=== PATIENT | female | born 2000 | race Caucasian/White ===

== ENCOUNTER 2022-01-04 05:57 | Inpatient (IN) ==
--- NOTE | 2021-12-16 13:57 | PAT Medication Instructions ---
Medication Instructions Date of Service December 16, 2021 Home Medications desogestrel 0.15 mg-ethinyl estradiol 0.03 mg tablet (Enskyce) 1 tab PO DAILY escitalopram oxalate 20 mg tablet 20 mg PO QAM levocetirizine 5 mg tablet 5 mg PO PM ASK your surgeon for instructions desogestrel 0.15 mg-ethinyl estradiol 0.03 mg tablet (Enskyce) 1 tab PO DAILY Take morning of surgery With a small sip of water, OTHERWISE NOTHING TO EAT OR DRINK AFTER MIDNIGHT: escitalopram oxalate 20 mg tablet 20 mg PO QAM Take evening before surgery levocetirizine 5 mg tablet 5 mg PO PM Other Notes If you have any questions please call us at [phone] or [phone] or [phone] or [phone]
--- NOTE | 2021-12-20 14:07 | Anesthesiology Consultation ---
Date of Service December 20, 2021 Assessment & Plan (1) Encounter for pre-operative examination: - COVID screening: Per assessment on 12/20: No known COVID-19 positive contacts or current COVID-19 related symptoms. Travel screen negative. Patient vaccinated. Surgeon arranging preop COVID testing. Awaiting results. - Check test AM DOS Chart Review Chart Review: Acceptable Risk for Surgery and Patient seen in Pre Admission Testing Teaching & Discussion Pre-Anesthesia Teaching/Discussion Notes: Instructed NPO after midnight before surgery,except medications with 15 cc of water. Medication instructions provided according to the PAT guidelines. History Surgery Operation Date: 01/04/22 07:15 Proposed Procedures p Maxillary Lefort I Osteotomy and Mandibular Sagittal Split Osteotomy - Zay Quach MD, DDS Height/Weight Height: 5 ft 6 in Weight: 80 kg Allergies Allergy/AdvReac Type Severity Reaction Status Date / Time No Known Allergies Allergy Verified 12/16/21 10:00 Medications Home Medications Medication Instructions Recorded Confirmed Last Taken desogestrel 0.15 mg-ethinyl 1 tab PO DAILY 12/16/21 12/16/21 Unknown estradiol 0.03 mg tablet (Enskyce) escitalopram oxalate 20 mg tablet 20 mg PO QAM 12/16/21 12/16/21 Unknown levocetirizine 5 mg tablet 5 mg PO PM 12/16/21 12/16/21 Unknown Past Medical History Medical History Anxiety Asthma excercise induced Hx of renal calculi Exercise / Class Metabolic Activity II 4-5 Yardwork/Stairs/Walk up hill Past Surgical History Surgical History Hx of lithotripsy Hx of wisdom tooth extraction Past Anesthesia History No Hx of Anesthesia Complications and No Family Hx of Anesthesia Complications History of PONV No Hx of PONV and No Hx of Motion Sickness Social History Smoking Status: Current every day smoker tobacco type: e-cigarettes Smoking cigarettes per day: vape- ocas Do You Dip or Chew Tobacco: No Hx Alcohol Use: Yes alcohol intake frequency: a few times a month Hx Substance Use: Yes substance use type: marijuana (help with anxiety - ocas) Review of Systems Patient denies chest pain, shortness of breath, dyspnea on exertion, fever, chills, cough, wheezing, palpitations. Physical Exam Vital Signs VITALS BP 120/80 P 88 TEMP 99.4 SP02 98% RA RESP 16 PHYSICAL Full cervical extension range of motion. Full TMJ range of motion. TMD 4 finger breaths Mallampati Score 1 Dentition: intact, upper/lower braces Lungs: clear throughout to auscultation Cardiac: regular rate and rhythm, no murmurs noted Spine: normal Extremities: no edema Lab Results Anesthesia Preop Results Results Anesthesia Widget: WBC 9.87 K/uL (4.8-10.8) 12/20/21 Hgb 13.2 g/dL (12.0-16.0) 12/20/21 Hct 38.7 % (37-47) 12/20/21 Plt 336 K/uL (130-400) 12/20/21 Blood Type B Positive 12/20/21 Antibody Screen NEGATIVE 12/20/21
[2022-01-04] MEDS ORDERED: ceFAZolin 2000MG 2,000 MG/15 ML SYR IV SCH (06:00)
[2022-01-04] MEDS ORDERED: LACTATED RINGER'S 1,000 ML IV SCH (06:00)
[2022-01-04] MEDS ORDERED: DEXAMETHASONE SOD INJ 4 MG/ML VIAL IV SCH (06:00)
--- NOTE | 2022-01-04 06:26 | History & Physical Bridge Note ---
Date of Service January 04, 2022 History & Physical Bridge Note I have examined the patient, reviewed the History & Physical and in the interval since the performance of the History & Physical I have noted the following changes of clinical significance: no changes noted.
[2022-01-04] MEDS ORDERED: ROCURONIUM BROMIDE 10 MG/ML 5 ML VIAL IV ONE ×2 (06:52→08:07)
[2022-01-04] MEDS ORDERED: DEXAMETHASONE SOD INJ 4 MG/ML VIAL ONE (06:52)
[2022-01-04] MEDS ORDERED: LIDOCAINE 2% 2 ML VIAL/AMP(20MG/ML) INFIL ONE (06:52)
[2022-01-04] MEDS ORDERED: ONDANSETRON INJ 2 MG/ML 2 ML VIAL ONE ×2 (06:52→07:54)
[2022-01-04] MEDS ORDERED: MIDAZOLAM HCL 1 MG/ML 2ML VIAL ONE (06:52)
[2022-01-04] MEDS ORDERED: PROPOFOL IV EMULSION 10 MG/ML 20 ML VIAL IV ONE ×2 (06:52→09:14)
[2022-01-04] MEDS ORDERED: fentaNYL citrate 100 MCG/2 ML VIAL ONE (06:52)
[2022-01-04] MEDS ORDERED: ATROPINE SULFATE 0.1 MG/ML 10ML SYR IV PRN ×2 (07:03→12:28)
[2022-01-04] MEDS ORDERED: ePHEDrine sulfate 50 MG/ML AMP IV PRN ×2 (07:03→12:28)
[2022-01-04] MEDS ORDERED: ONDANSETRON INJ 2 MG/ML 2 ML VIAL IV PRN ×2 (07:03→10:54)
[2022-01-04] MEDS ORDERED: OXYMETAZOLINE 0.05% 30 ML BTL ONE (07:05)
[2022-01-04] MEDS ORDERED: SCOPOLAMINE 1 MG TDSY TD ONE (07:12)
[2022-01-04] MEDS ORDERED: BUPIVACAINE/EPINEPHRINE 0.5% 1:200,000 1.8 ML CARP ONE (07:19)
[2022-01-04] MEDS ORDERED: TRIAMCINOLONE ACET 0.1% OINT 15 GM TUBE ONE (07:19)
[2022-01-04] MEDS ORDERED: CHLORHEXIDINE GLUCONATE 0.12% 480 ML ONE (07:20)
[2022-01-04] MEDS ORDERED: HYDROmorphone INJ 2 MG/ML SYR/VIAL ONE (07:55)
[2022-01-04] MEDS ORDERED: ESMOLOL HCL INJ 10 MG/ML 10ML VIAL IV ONE (09:09)
[2022-01-04] MEDS ORDERED: NEOSTIGMINE METHYLSULFATE 1 MG/ML 10ML VIAL ONE (10:27)
[2022-01-04] MEDS ORDERED: GLYCOPYRROLATE 0.2 MG/ML VIAL ONE (10:27)
--- NOTE | 2022-01-04 10:37 | Post Operative Brief Note ---
Immediate Post Op Note v1 Date of Surgery January 04, 2022 Pre & Post Diagnosis Operation Date: 01/04/22 07:15 Pre-Op Diagnosis: Maxillary Hypoplasia, Mandibular Prognathism Post-Op Diagnosis: Maxillary Hypoplasia, Mandibular Prognathism I identified the patient and participated in the time-out.: Yes Procedure Operation Date: 01/04/22 07:15 Actual Procedures Maxillary Lefort I Osteotomy and Mandibular Sagittal Split Osteotomy(Not Applicable) - Zay Quach MD, DDS Surgeon Zay Quach MD, DDS Spreader Operator [facility] Estimated Blood Loss 3 Findings Consistent with Post-Op Diagnosis Intact nerves bilaterally. Stable fixation in the planned occlusion Fluids 1400 Anesthesia Type General Complications None Disposition Accompanied Patient To Recovery: Yes
[2022-01-04] MEDS ORDERED: MoRPHine SULFATE 2 MG/ML CARP IV PRN (10:54)
[2022-01-04] MEDS ORDERED: ACETAMINOPHEN/HYDROcodone ELIX 15 ML/CUP PO PRN ×2 (10:54)
[2022-01-04] MEDS ORDERED: SODIUM CHLORIDE 0.65% NA SOLN 45 ML (OCEAN) PRN (10:54)
[2022-01-04] MEDS: fentaNYL citrate 100 MCG/2 ML VIAL IV PRN ×4 (11:08→11:30)
--- NOTE | 2022-01-04 11:39 | Operative Report (OR) ---
DATE OF SURGERY: 01/04/2022. 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 PROCEDURE: LeFort I maxillary osteotomy with rigid internal fixation and bilateral sagittal split ra mus osteotomies of the mandible with rigid internal fixation. SURGEON: Zay Quach DDS. COVERING MACHINE OPERATOR: JAMEEL Salcedo. ANESTHESIA: General. ESTIMATED BLOOD LOSS: 300 mL. DRAINS: None. SPECIMENS: None. COMPLICATIONS: None. 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 We have consulted with her. She has had required preoperative orthodontic treatment and then she has had a full skele oscar and dental 3 dimensional workup and treatment planning for this surgery. She requires a 5 mm LeFo rt advancement and a 5 mm mandibular setback with correction of a significant mandibular asymmetry wi th the details of the surgery planned custom titanium hardware has been fabricated to assist with the fixation of her maxilla. She has had a routine preadmission testing. She is a good candidate for this surgery medically and s he has had an informed consent. DESCRIPTION OF PROCEDURE: The patient was taken to the operating room and placed supine on the opera ting room table. Routine anesthesia monitors were applied. General anesthesia was induced and nasal endotracheal intubation was performed. The eyes were lubed and taped. The endotracheal tube was se cured and a head wrap and a sterile prep and drape was performed. We then took a timeout. I began b y placing IMF screws between the premolars in all 4 quadrants and doing a minor occlusal adjustment o f several teeth as planned in her workup. We approached the mandible first after giving 0.5% Marcaine as inferior alveolar nerve blocks bilaterally and infraorbital nerve blocks in the maxilla. I first created the right posterior mandibular buccal sulcus incision, carried this down to the mandible and reflected the posterior ramus of the mandible to allow access for the sagittal osteotomy. The inferior alveolar nerve was identified as it entered the mandibular foramen. It was protected wi th a lighted retractor. I completed the sagittal osteotomy and packed this side. I then turned my at tention to the left side and made the same soft tissue incision with a wide reflection of the ramus o f the mandible. Identification and protection of the inferior alveolar nerve and completion of the s agittal osteotomy with the reciprocating saw. We then packed these before the osteotomies were compl eted and turned our attention to the maxilla. The typical upper buccal sulcus incision was then crea selena with a needle tip electrocautery in the anterior maxilla and the floor of the nose was exposed. I used the surgical guides to jarrell out the planned osteotomies and screw hole location and then finis hed the osteotomies with the reciprocating saw. I released the pterygoid plates with a curved osteoto me and I the lateral nasal mahmood with a guarded osteotome and the nasal septum fr om the maxillary crest with a straight osteotome. With finger pressure and the Hua spreaders, the maxilla was easily down fractured and mobilized. B feli interferences were trimmed with the rongeurs and there was very little bleeding. I advanced her maxilla into the intermediate splint and found to be passive in this position and then used the 3D pr inted titanium plates in their proper orientation to fixate the maxilla in its advanced planned locat ion. Irrigated everything clear and then turned our attention to the mandible. The left sagittal ost eotomy was approached and I used an inferior border mail order sorter with the Hua spreaders to complete the osteotomy in a favorable manner. The nerve was intact and then I turned my attention to the right s kofi and again the osteotomy was completed in a favorable manner with an intact nerve. Areas of bone reduction were then completed with the reciprocating saw, as we had planned and I placed the patient into a class 1 occlusion in her splint. We then used 3 transbuccal bicortical positioning screws on each side to fix the mandible in its new position and I confirmed that with the IMF release that she passively closed into her planned class 1 occlusion. All the wounds were then irrigated and the mandibular incisions were closed with a runni ng 4-0 chromic gut suture. The maxillary incision was closed with an anterior V-Y and then a running 4-0 chromic laterally on both sides. The skin incisions were closed with a 6-0 nylon. The orophary nx and stomach were suctioned clear and then she was turned over to anesthesia, extubated in the oper ating room and transferred to the recovery area in stable condition. At the end of the procedure all counts were correct. Job ID: [id number]
--- NOTE | 2022-01-04 12:09 | Anesthesiology Progress Note ---
Date of Service January 04, 2022 Anesthesia Post Procedure Vital Signs Vital Signs: Temp Pulse Pulse Resp BP Pulse Ox 01/04/22 12:00 36.8 C 65 13 134/68 98 01/04/22 11:50 36.8 C 67 11 L 129/71 98 01/04/22 11:40 36.8 C 59 L 16 127/72 97 01/04/22 11:30 36.8 C 61 11 L 128/76 97 01/04/22 11:20 61 10 L 134/82 98 01/04/22 11:10 56 L 17 124/85 95 01/04/22 11:00 63 11 L 137/55 L 97 01/04/22 10:51 36.4 C L 68 16 130/75 99 01/04/22 06:25 36.9 C 71 18 119/81 98 Pain Intensity Bilateral Mouth: Pain Intensity: 3 Transfer of Care Handoff Completed per policy Notes Mental Status: alert / awake / arousable and participated in evaluation Patient Amnestic to Procedure: Yes Nausea / Vomiting: adequately controlled Pain: adequately controlled Airway Patency, RR, SpO2: stable & adequate BP & HR: stable & adequate Hydration State: stable & adequate Anesthetic Complications: no major complications apparent and Pt Satisfied with anesthetic care
[2022-01-04] MEDS ORDERED: HYDROmorphone INJ 1 MG/ML SYRINGE ONE (12:30)
[2022-01-04] MEDS: HYDROmorphone INJ 1 MG/ML SYRINGE IV PRN ×5 (12:33→12:59)
[2022-01-04] MEDS ORDERED: ACETAMINOPHEN 1,000 MG/100 ML VIAL IV STA (12:52)
[2022-01-04] MEDS ORDERED: ACETAMINOPHEN 1000 MG/100 ML IV IV ONE (12:53)
[2022-01-04] MEDS ORDERED: ACETAMINOPHEN SUSP 325 MG/10.15 ML UDC PO PRN (13:23)
[2022-01-04] MEDS: KETOROLAC 30 MG/ML VIAL IV SCH ×2 (14:22→21:14)
[2022-01-04] MEDS: MoRPHine SULFATE 4 MG/ML 1 ML CARP\\VIAL IV PRN ×3 (15:17→21:53)
[2022-01-04] MEDS: dexAMETHasone 6 MG in SYRINGE 0 ML IV SCH ×2 (15:55→21:15)
--- NOTE | 2022-01-04 16:35 | Progress Notes ---
DATE OF SERVICE: 01/04/2022 Postop check. Kim was seen at bedside. She has now been transferred to the med/surg floor. Srinivas amparo reports her pain control reasonably well currently at 11/21 and has just received some IV morphine. She has been out of bed and voided. Her vital signs are normal. She is afebrile. She has minimal swelling, very small amount of nasal bleeding, which is not unexpected. Her occlusion looks good in the immediate postoperative setting, and otherwise, she is comfortable. She has got normal postoperative course to date. We will work on oral intake and for now, keep her I V fluids Hep-Lock. Pain control seems to be adequate at this point. We will encourage her to get up and ambulate and anticipate discharge to home in the morning. Job ID: [id number]
[2022-01-04] MEDS ORDERED: NON-FORMULARY MEDICATION (Levocetirizine [Xyzal] 5 mg Tablet) PO SCH (21:00)
[2022-01-04] MEDS: busPIRone 5 MG TAB PO SCH (21:14)
[2022-01-05] MEDS: dexAMETHasone 6 MG in SYRINGE 0 ML IV SCH ×2 (02:40→07:44)
[2022-01-05] MEDS: KETOROLAC 30 MG/ML VIAL IV SCH ×2 (02:40→07:45)
[2022-01-05] MEDS: MoRPHine SULFATE 4 MG/ML 1 ML CARP\\VIAL IV PRN (02:40)
[2022-01-05] MEDS: busPIRone 5 MG TAB PO SCH (07:47)
[2022-01-05] MEDS ORDERED: ESCITALOPRAM OXALATE 20 MG TAB PO SCH (09:00)
--- NOTE | 2022-01-05 16:21 | Discharge Summary (DS) ---
DATE OF ADMISSION: 01/04/2022. DATE OF DISCHARGE: 01/05/2022 ADMITTING DIAGNOSES: Maxillary hypoplasia and mandibular hyperplasia. HOSPITAL PROCEDURES: LeFort I maxillary osteotomy and bilateral sagittal split mandibular ramus osteo tomies. COMPLICATIONS: None. Her hospital course was uneventful. Please refer to her history and physical in her chart, essentially she is a generally healthy 21-year -old female with a developmental deformity of the facial bones, who was admitted for surgical correct ion. Her hospital course was unremarkable. She was taken from the OR to the PACU, had an uneventful cours e in the PACU and then transferred to the third floor for overnight observation. She was able to peri e full liquids by mouth. She voided spontaneously. She did require some IV morphine for pain contro l through the night, did not have any substantial postoperative nausea and vomiting, vital signs were stable and the morning after the surgery she was felt to be stable for discharge to home. You can r efer to her discharge packet for those details. She will have close outpatient followup with me. Job ID: [id number]
== END 2022-01-05 11:19 | disposition home or self-care (01) | DRG 142 ==
LOC: ASU 05:57 → PACUINP 10:52 → 3N 14:34